=== PATIENT | female | born 2000 | race Two or more races ===

== ENCOUNTER 2023-04-13 18:21 | Emergency (ER) | payer OTHER ==
[~2023-04-13] VITALS: Ht 160 cm; Wt 56.2 kg
[2023-04-13] MEDS ORDERED: ZOLPIDEM TART1.75 MG SL (18:27)
[2023-04-13] MEDS ORDERED: SERTRALINE20 MG/1 ML PO (18:28)
[2023-04-13] MEDS ORDERED: ATIVAN0.5 M1 PO (18:28)
[2023-04-13] MEDS ORDERED: ABILIFY10 MG PO (18:28)
[2023-04-13 20:53] LABS: HEMOGLOBIN 11.2 g/dL (12.0-15.00); MEAN CELL VOLUME 80.8 fL (80.00-100.00); MEAN CORPUSCULAR HEMOGLOBIN 26.7 pg (27.00-32.0); PLATELET COUNT 340 K/uL (150-450); RED BLOOD COUNT 4.21 M/uL (4.00-6.00); RED CELL DISTRIBUTION WIDTH 14.3 % (11.5-14.5)
[2023-04-13 21:13] LABS: CREATININE SERUM 0.9 mg/dL (0.55-1.02); GFR 77.59; POTASSIUM 3.78 mEq/L (3.5-5.1)
== END 2023-04-13 22:10 | disposition home or self-care (01) ==
LOC: ER 18:21
PROVIDERS: General Practice
DX: F41.9 Anxiety disorder, unspecified (principal); Z88.6 Allergy status to analgesic agent